=== PATIENT | female | born 1990 | race Caucasian/White ===

== ENCOUNTER 2021-08-15 19:36 | Emergency (ER) | payer OTHER ==
[2021-08-15 20:37] LABS: BASOPHIL 0.1 % (0-2); HCT 34.3 % (37.0-47.0); HGB 11.3 g/dl (12.5-16.0); LYMPHOCYTE 22.6 % (15-48); MCH 28.7 pg (25.0-31.0); MCHC 32.9 g/dL (32.0-36.0); MCV 87.1 fL (78.0-100.0); MONOCYTE 6.9 % (0-12); MPV 10.8 fL (6.0-9.5); NEUTROPHIL 69.1 % (41-80); NRBC 0; PLT 207 K/uL (150-400); RBC 3.94 M/uL (4.20-5.40); RDW 12.9 % (11.5-14.0)
[2021-08-15 21:33] LABS: ALBUMIN 4.3 g/dL (3.4-5.0); BILIRUBIN - TOTAL 0.8 mg/dL (0.2-1.0); BUN/CREAT RATIO (CALC) 23.7 RATIO; CREATININE 0.59 mg/dL (0.51-0.95); GLOBULIN (CALCULATION) 3.1 g/dL; POTASSIUM 3.1 mmol/L (3.5-5.1); TOTAL PROTEIN 7.4 g/dL (6.4-8.2)
== END 2021-08-16 00:55 | disposition home or self-care (01) ==
LOC: FER 19:36
PROVIDERS: Emergency Medicine
DX: J84.10 Pulmonary fibrosis, unspecified (principal); R07.89 Other chest pain; F41.9 Anxiety disorder, unspecified; Z91.040 Latex allergy status
CPT/HCPCS: 36415; 71045; 71275; 80053; 84484; 85025; 85379; 93005; C9113; J2405; J7030; Q9967